=== PATIENT | male | born 1990 ===

== ENCOUNTER 2017-01-02 13:26 | Emergency (ER) | payer OTHER ==
--- NOTE | 2017-01-02 15:43 | ERNOTE ---
ENT HPI Date of Service: 01/02/17 Time Seen by Provider: 01/02/17 15:25 Source: patient Exam Limitations: no limitations - Immun/Allergies/Home Medications Immunizations: IMMUNIZATION HX Immunizations Up to Date No History of Influenza Vaccine Yes Hx Pneumococcal Vaccination No Allergies/Adverse Reactions: Allergies Allergy/AdvReac Type Severity Reaction Status Date / Time No Known Allergies Allergy Verified 01/02/17 13:39 Home Medications: HOME MEDICATIONS Albuterol Sulfate [Ventolin HFA] 1 puff IH Q6H PRN 01/02/17 [Last Taken Unknown] Ibuprofen [Motrin] 800 mg PO TID PRN #30 tablet 01/02/17 [Last Taken Unknown] Penicillin V Potassium [Pen-Vee K] 500 mg PO QID #40 tab 01/02/17 [Last Taken Unknown] - History of Present Illness Narrative: Pt presents to ED for swelling and tenderness of gums in the area of his central incisors and para incisors. Symptoms have been going on for two days but he has had poor dentition for awhile Review of Systems - Review of Systems Constitutional: Present: no symptoms reported EYE: Present: no symptoms reported ENT: Present: See HPI Respiratory: Present: no symptoms reported Cardiology: Present: no symptoms reported Gastrointestinal/Abdominal: Present: no symptoms reported Genitourinary: Present: no symptoms reported Musculoskeletal: Present: no symptoms reported Skin: Present: no symptoms reported Neurological: Present: no symptoms reported - Patient's Past Medical History Patient History - Medical: No pertinent hx Patient History - Cardiac/Respiratory: Asthma Patient History - Cancer: No Hx of Cancer Patient History - Surgical Procedures: No surgical history Patient History - Other: None - Social History Living Situations: home Psych History: No pertinent hx Alcohol Use: none Drug Use: marijuana - Immunizations Immunizations Up to Date: No Hx Pneumococcal Vaccination: No History of Influenza Vaccine: Yes Physical Exam - Physical Exam General Appearance: Present: wd/wn, alert, no apparent distress Eye Exam: Normal inspection: bilateral, PERRL: bilateral, EOMI: bilateral Ears, Nose, Throat: Present: normal ENT inspection, normal pharynx, other - extremely poor dentition and there is swelling and inflammation of the maxillary gingiva in area of her incisors and para incisors. No open lesions or arsh pus noted Neck: Present: normal inspection, nontender Respiratory: Present: no respiratory distress, normal breath sounds, no accessory muscle use, chest nontender, lungs clear Cardiovascular/Chest: Present: regular rate, rhythm, no murmur, normal peripheral pulses Extremity Exam: Present: normal inspection, normal range of motion, no edema ED Progress - Vital Signs Patient's Vital Signs:: I have reviewed the patient's vital signs. Vital Signs: Vital Signs 01/02/17 13:35 Temperature 36.9 C Pulse Rate 77 Respiratory 16 Rate Blood Pressure 128/83 O2 Sat by Pulse 98 Oximetry - Progress/Reassessment Chief Complaint: Dental Problem Departure Clinical Impression: Dental caries - Departure Disposition: Home self-care Condition: Fair Instructions: Dental Care and Dentist Visits Referrals: Justine Aguirre FNP [Primary Care Provider] - Prescriptions: Ibuprofen [Motrin] 800 mg PO TID PRN #30 tablet PRN Reason: Pain Penicillin V Potassium [Pen-Vee K] 500 mg PO QID #40 tab
[2017-01-02 15:56] VITALS: BP 124/83
== END 2017-01-02 15:45 | disposition home or self-care (01) ==
LOC: ER 13:26
DX: K02.9 Dental caries, unspecified (principal)